=== PATIENT | female | born 1960 | race Caucasian/White ===

== ENCOUNTER 2022-01-04 14:55 | Outpatient (CLI) | payer OTHER, SELFPAY ==
[2022-01-04 10:05] LABS: Albumin* 4.1 g/dL (3.3-5.0); Chloride* 105 mmol/L (96-114)
[2022-01-04 10:06] LABS: Potassium* 4.2 mmol/L (3.6-5.1); Sodium* 140 mmol/L (135-149)
[2022-01-04 10:08] LABS: Alkaline Phosphatase* 69 U/L (40-150); Aspartate Amino Transferase* 26 U/L (12-35); Bilirubin Total* 0.5 mg/dL (0.1-1.5); Blood Urea Nitrogen* 26 mg/dL (7-30); Carbon Dioxide* 30 mmol/L (20-32); Cholesterol* 247 mg/dL (90-199); Creatinine* 0.8 mg/dL (0.5-1.5); Estimated Glomerular Filt Rate 84 ml/min; Glucose* 87 mg/dL (60-115)
[2022-01-04 10:09] LABS: Alanine Aminotransferase* 27 U/L (4-35); Calcium* 9.2 mg/dL (8.4-10.6); HDL Cholesterol* 67 mg/dL (>=50); LDL Cholesterol Calculated 158 mg/dL (<100); Triglycerides* 111 mg/dL (40-149)
== END 2022-01-04 14:56 | disposition home or self-care (01) ==
PROVIDERS: PCP Internal Medicine; Visit Provider Internal Medicine
DX: E03.9 Hypothyroidism, unspecified (principal); E78.5 Hyperlipidemia, unspecified; I10 Essential (primary) hypertension; F32.5 Major depressive disorder, single episode, in full remission
CPT/HCPCS: 80053; 80061; 84443

== ENCOUNTER 2022-02-28 15:17 | Outpatient (CLI) | payer OTHER, SELFPAY ==
--- NOTE | 2022-02-28 15:40 | CRLHL7_ITS ---
For Patients: As a result of the Cures Act, medical imaging exams and procedure reports are released immediately into your electronic medical record. You may view this report before your referring provider. If you have questions, please contact your health care provider. BILATERAL SCREENING MAMMOGRAM WITH COMPUTER-AIDED DETECTION AND TOMOSYNTHESIS TECHNIQUE: CC and MLO views were obtained. These mammographic images have been obtained using full-field digital technique. These mammographic images were interpreted with the benefit of computer-aided detection. Breast Tomosynthesis was used in this interpretation. COMPARISON FILM: 02/21/21, 08/27/19, 07/10/18. FINDINGS: There are scattered areas of fibroglandular density IMPRESSION: There is no radiographic evidence for malignancy. ASSESSMENT: BI-RADS Category 1: Negative RECOMMENDATION: Routine screening mammogram in 1 year. A lay language report of this examination will be provided to the patient. Manuel Ozuna M.D. Diagnostic Radiologist [email or web address] Transcribed: 3:42 p.eliseo mancia/Dictated by: Manuel Ozuna MD @ 03/01/2022 9:46:00 AM (Electronically Signed)
== END 2022-02-28 15:18 | disposition home or self-care (01) ==
PROVIDERS: PCP Internal Medicine; Visit Provider Obstetrics & Gynecology
DX: Z12.31 Encounter for screening mammogram for malignant neoplasm of breast (principal)
CPT/HCPCS: 77063; 77067

== ENCOUNTER 2022-03-10 08:00 | Outpatient (CLI) | payer OTHER, SELFPAY ==
--- NOTE | 2022-03-10 09:01 | W.ANESCHARGE ---
Anesthesia Charges Start Date/Time Anesthesia Start Date: 03/10/22 Anesthesia Start Time: 07:28 Stop Date/Time Anesthesia Stop Date: 03/10/22 Anesthesia Stop Time: 08:57 Summary Emergency: No
--- NOTE | 2022-03-10 09:16 | W.ANESCHARGE ---
Anesthesia Charges Start Date/Time Anesthesia Start Date: 03/10/22 Anesthesia Start Time: 08:28 Stop Date/Time Anesthesia Stop Date: 03/10/22 Anesthesia Stop Time: 08:57 Summary Emergency: No
--- NOTE | 2022-03-10 09:31 | W.ANESCHARGE ---
Anesthesia Charges Start Date/Time Anesthesia Start Date: 03/10/22 Anesthesia Start Time: 08:28 Stop Date/Time Anesthesia Stop Date: 03/10/22 Anesthesia Stop Time: 08:57 Summary Emergency: No
== END 2022-03-10 08:01 | disposition home or self-care (01) ==
PROVIDERS: PCP Internal Medicine; Visit Provider Internal Medicine
DX: Z12.11 Encounter for screening for malignant neoplasm of colon (principal); K63.5 Polyp of colon; Z86.010 Personal history of colon polyps
CPT/HCPCS: 00811; 45380; 88305; J2405; J2704